=== PATIENT | female | born 1975 | race Hispanic/Latino ===

== ENCOUNTER → 2017-12-17 | Outpatient (CLI) | payer OTHER | END | disposition home or self-care (01) | LOC: RAH 09:06 | PROVIDERS: ATTEND Nurse Practitioner Family | DX: Z12.31 Encounter for screening mammogram for malignant neoplasm of breast (principal) | CPT/HCPCS: 77067 ==

== ENCOUNTER → 2018-02-28 | Outpatient (CLI) | payer OTHER | END | disposition home or self-care (01) | LOC: RAH 10:45 | PROVIDERS: ATTEND Surgery | DX: K31.84 Gastroparesis (principal); R11.10 Vomiting, unspecified; R14.0 Abdominal distension (gaseous) | CPT/HCPCS: 78264; A9541 ==

== ENCOUNTER → 2018-06-06 | Outpatient (CLI) | payer OTHER ==
[2018-06-06 09:16] LABS: BASOPHILS % (AUTO) 0.7 % (0.0-5.0); EOSINOPHILS % (AUTO) 1.2 % (0.0-8.0); HEMATOCRIT 35.1 % (36-48); LYMPHOCYTES % (AUTO) 12.2 % (21.0-51.0); MEAN CORPUSCULAR HEMOGLOBIN 25.8 pg (27.0-33.0); MEAN CORPUSCULAR HGB CONC 32.4 g/dL (32.0-36.0); MEAN CORPUSCULAR VOLUME 79.6 fL (79-99); MONOCYTES % (AUTO) 5.4 % (3.0-13.0); NEUTROPHILS % (AUTO) 80.5 % (40.0-77.0); PLATELET COUNT (AUTO) 271 K/uL (130-400); RED BLOOD CELL COUNT(AUTO) 4.41 MIL/uL (4.00-5.50); RED CELL DISTRIBUTION WIDTH 17.5 % (11.0-15.5); WHITE BLOOD COUNT (AUTO) 8.6 K/uL (4.8-10.8)
[2018-06-06 09:45] LABS: ALBUMIN 3.3 g/dL (3.5-5.0); BILIRUBIN,TOTAL 0.3 mg/dL (0.2-1.0); CREATININE 0.8 mg/dL (0.5-1.5); CRP QUANTITATIVE 47.3 mg/L (0.00-9.0); POTASSIUM 3.9 mmol/L (3.5-5.1); THYROID STIMULATING HORMONE 0.95 uIU/mL (0.36-3.74); TOTAL PROTEIN, SERUM 8.4 g/dL (6.0-8.3); URIC ACID 5.8 mg/dL (2.6-7.2)
[2018-06-06 09:48] LABS: FERRITIN 47 ng/mL (15-150); IRON, SERUM 27 mcg/dL (50-170)
[2018-06-06 10:24] LABS: ERYTHROCYTE SEDIMENTATION RATE 80 MM/HR (0-20)
[2018-06-06 12:24] LABS: APPEARANCE,URINE Clear (CLEAR); BILIRUBIN,URINE Negative (NEGATIVE); COLOR,URINE Yellow (YELLOW); GLUCOSE, URINE (UA) Negative (NEGATIVE); KETONES,URINE 15 mg/dL (NEGATIVE); LEUKOCYTE ESTERASE ,URINE Negative (NEGATIVE); NITRATE,URINE Negative (NEGATIVE); OCCULT BLOOD,URINE Trace (NEGATIVE); PH,URINE 5.5 (5.0-8.0); PROTEIN,URINE Negative (NEGATIVE); UROBILINOGEN,URINE 0.2 mg/dL (0.2-1.0)
[2018-06-06 12:42] LABS: BACTERIA,URINE Rare /HPF (None Seen); RBC,URINE 0-1 /HPF (0-1); SQUAMOUS EPITHELIAL CELL,UR Rare /HPF (0-2); WBC,URINE None Seen /HPF (0-1)
== END | disposition home or self-care (01) ==
LOC: LAB 07:54
PROVIDERS: ATTEND Internal Medicine
DX: R70.0 Elevated erythrocyte sedimentation rate (principal); E44.1 Mild protein-calorie malnutrition; E11.9 Type 2 diabetes mellitus without complications
CPT/HCPCS: 36415; 80053; 80061; 81001; 82728; 83540; 84443; 84550; 85025; 85651; 86038; 86140; 86215; 86235; 86431

== ENCOUNTER → 2018-07-02 | Outpatient (CLI) | payer OTHER ==
[2018-07-03 08:30] LABS: BASOPHILS % (AUTO) 1.2 % (0.0-5.0); EOSINOPHILS % (AUTO) 1.7 % (0.0-8.0); HEMATOCRIT 34.3 % (36-48); LYMPHOCYTES % (AUTO) 19.6 % (21.0-51.0); MEAN CORPUSCULAR HEMOGLOBIN 26.1 pg (27.0-33.0); MEAN CORPUSCULAR HGB CONC 32.9 g/dL (32.0-36.0); MEAN CORPUSCULAR VOLUME 79.3 fL (79-99); NEUTROPHILS % (AUTO) 71.5 % (40.0-77.0); PLATELET COUNT (AUTO) 290 K/uL (130-400); RED BLOOD CELL COUNT(AUTO) 4.32 MIL/uL (4.00-5.50); WHITE BLOOD COUNT (AUTO) 6.8 K/uL (4.8-10.8)
[2018-07-03 08:52] LABS: ALBUMIN 3.1 g/dL (3.5-5.0); BILIRUBIN,TOTAL 0.3 mg/dL (0.2-1.0); CREATININE 0.7 mg/dL (0.5-1.5); CRP QUANTITATIVE 41.9 mg/L (0.00-9.0); POTASSIUM 4.3 mmol/L (3.5-5.1)
[2018-07-03 09:26] LABS: ERYTHROCYTE SEDIMENTATION RATE 52 MM/HR (0-20)
== END | disposition home or self-care (01) ==
LOC: OIH 14:51
PROVIDERS: ATTEND Internal Medicine
DX: R70.0 Elevated erythrocyte sedimentation rate (principal); R77.1 Abnormality of globulin; E78.5 Hyperlipidemia, unspecified
CPT/HCPCS: 36415; 80053; 84165; 85025; 85651; 86140

== ENCOUNTER → 2018-07-29 | Outpatient (CLI) | payer OTHER | END | disposition home or self-care (01) | LOC: LAB 16:40 | PROVIDERS: ATTEND Internal Medicine | DX: R10.13 Epigastric pain (principal); R77.1 Abnormality of globulin; R70.0 Elevated erythrocyte sedimentation rate; L73.2 Hidradenitis suppurativa | CPT/HCPCS: 36415; 82784; 83013; 83516; 85651; 86140; 86160; 86215; 86235; 86255; 86376; 86431 ==

== ENCOUNTER → 2018-09-11 | Outpatient (CLI) | payer OTHER ==
[2018-09-13 08:24] LABS: HEPATITIS Bs ANTIGEN SCREEN P Negative (Negative)
== END | disposition home or self-care (01) ==
LOC: LAB 13:08
PROVIDERS: ATTEND Internal Medicine
DX: L73.2 Hidradenitis suppurativa (principal)
CPT/HCPCS: 36415; 86480; 86704; 87340

== ENCOUNTER → 2019-04-09 | Outpatient (CLI) | payer OTHER ==
[2019-04-09 08:40] LABS: BASOPHILS % (AUTO) 0.7 % (0.0-5.0); EOSINOPHILS % (AUTO) 1.6 % (0.0-8.0); HEMATOCRIT 37.1 % (36-48); LYMPHOCYTES % (AUTO) 16.1 % (21.0-51.0); MEAN CORPUSCULAR HEMOGLOBIN 26.5 pg (27.0-33.0); MEAN CORPUSCULAR HGB CONC 32.1 g/dL (32.0-36.0); MEAN CORPUSCULAR VOLUME 82.6 fL (79-99); MONOCYTES % (AUTO) 6.1 % (3.0-13.0); NEUTROPHILS % (AUTO) 75.5 % (40.0-77.0); PLATELET COUNT (AUTO) 294 K/uL (130-400); RED BLOOD CELL COUNT(AUTO) 4.49 MIL/uL (4.00-5.50); RED CELL DISTRIBUTION WIDTH 15.7 % (11.0-15.5); WHITE BLOOD COUNT (AUTO) 8.4 K/uL (4.8-10.8)
[2019-04-09 09:05] LABS: APPEARANCE,URINE Clear (CLEAR); BILIRUBIN,URINE Negative (NEGATIVE); COLOR,URINE Yellow (YELLOW); GLUCOSE, URINE (UA) Negative (NEGATIVE); KETONES,URINE Negative (NEGATIVE); LEUKOCYTE ESTERASE ,URINE Negative (NEGATIVE); NITRATE,URINE Negative (NEGATIVE); OCCULT BLOOD,URINE Negative (NEGATIVE); PH,URINE 5.5 (5.0-8.0); PROTEIN,URINE Negative (NEGATIVE); UROBILINOGEN,URINE 0.2 mg/dL (0.2-1.0)
[2019-04-09 09:12] LABS: ALBUMIN 3.1 g/dL (3.5-5.0); BILIRUBIN,TOTAL 0.1 mg/dL (0.2-1.0); CREATININE 0.8 mg/dL (0.5-1.5); POTASSIUM 4.3 mmol/L (3.5-5.1); THYROID STIMULATING HORMONE 1.29 uIU/mL (0.36-3.74); TOTAL PROTEIN, SERUM 8.3 g/dL (6.0-8.3)
[2019-04-09 09:51] LABS: ERYTHROCYTE SEDIMENTATION RATE 70 MM/HR (0-20)
== END | disposition home or self-care (01) ==
LOC: LAB 07:42
PROVIDERS: ATTEND Nurse Practitioner Family
DX: E78.00 Pure hypercholesterolemia, unspecified (principal); R53.83 Other fatigue; E04.1 Nontoxic single thyroid nodule; L73.2 Hidradenitis suppurativa
CPT/HCPCS: 36415; 80053; 80061; 81003; 84439; 84443; 85025; 85651; 86038; 86215; 86235; 86431; 87070; 87076; 87077; 87186

== ENCOUNTER → 2020-07-22 | Outpatient (CLI) | payer OTHER ==
[2020-07-22 11:09] LABS: BASOPHILS % (AUTO) 0.4 % (0.0-5.0); EOSINOPHILS % (AUTO) 1.2 % (0.0-8.0); HEMATOCRIT 36.1 % (36-48); LYMPHOCYTES % (AUTO) 17.4 % (21.0-51.0); MEAN CORPUSCULAR HEMOGLOBIN 26.1 pg (27.0-33.0); MEAN CORPUSCULAR HGB CONC 31.6 g/dL (32.0-36.0); MEAN CORPUSCULAR VOLUME 82.6 fL (79-99); MONOCYTES % (AUTO) 4.9 % (3.0-13.0); NEUTROPHILS % (AUTO) 75.6 % (40.0-77.0); PLATELET COUNT (AUTO) 350 K/uL (130-400); RED BLOOD CELL COUNT(AUTO) 4.37 MIL/uL (4.00-5.50); RED CELL DISTRIBUTION WIDTH 16.1 % (11.0-15.5)
[2020-07-22 11:22] LABS: APPEARANCE,URINE Clear (CLEAR); BILIRUBIN,URINE Negative (NEGATIVE); COLOR,URINE Yellow (YELLOW); GLUCOSE, URINE (UA) Negative (NEGATIVE); KETONES,URINE Negative (NEGATIVE); LEUKOCYTE ESTERASE ,URINE Negative (NEGATIVE); NITRATE,URINE Negative (NEGATIVE); OCCULT BLOOD,URINE Negative (NEGATIVE); PROTEIN,URINE Negative (NEGATIVE); UROBILINOGEN,URINE 0.2 mg/dL (0.2-1.0)
[2020-07-22 11:36] LABS: HEMOGLOBIN A1C 5.8 % (4.0-6.0)
[2020-07-22 11:48] LABS: ALANINE AMINOTRANSFERASE 43 U/L (12-78); ALBUMIN 3.1 g/dL (3.5-5.0); ASPARTATE AMINOTRANSFERASE 19 U/L (10-37); BILIRUBIN,TOTAL 0.2 mg/dL (0.2-1.0); CARBON DIOXIDE 28 mmol/L (21-32); CHLORIDE 104 mmol/L (101-111); CHOLESTEROL 220 mg/dL (<200); CREATININE 0.8 mg/dL (0.5-1.5); GLOMERULAR FILTR. RATE CALC 83 mL/min (>60); GLUCOSE,RANDOM 92 mg/dL (70-105); HDL CHOLESTEROL 57 mg/dL (35-85); LDL DIRECT 137 mg/dL (0-99); POTASSIUM 4.1 mmol/L (3.5-5.1); SODIUM SERUM 138 mmol/L (136-145); THYROID STIMULATING HORMONE 1.19 uIU/mL (0.36-3.74); TOTAL PROTEIN, SERUM 8.4 g/dL (6.0-8.3); TRIGLYCERIDES 99 mg/dL (30-200); UREA NITROGEN, BLOOD 17 mg/dL (7-18); URIC ACID 4.4 mg/dL (2.6-7.2)
[2020-07-22 12:11] LABS: ERYTHROCYTE SEDIMENTATION RATE 84 MM/HR (0-20)
== END | disposition home or self-care (01) ==
LOC: LAB 10:05
PROVIDERS: ATTEND Family Medicine
DX: Z00.01 Encounter for general adult medical examination with abnormal findings (principal); R53.82 Chronic fatigue, unspecified; E66.01 Morbid (severe) obesity due to excess calories; E78.5 Hyperlipidemia, unspecified; R03.0 Elevated blood-pressure reading, without diagnosis of hypertension; I10 Essential (primary) hypertension; Z68.34 Body mass index [BMI] 34.0-34.9, adult
CPT/HCPCS: 36415; 80053; 80061; 81003; 82043; 82306; 82607; 82627; 82728; 82746; 83001; 83036; 83090; 83735; 84402; 84403; 84439; 84443; 84481; 84550; 85025; 85651; 86003; 86005; 86038; 86140; 86215; 86235; 86376

== ENCOUNTER → 2021-02-08 | Outpatient (CLI) | payer OTHER ==
[2021-02-08 09:49] LABS: BASOPHILS % (AUTO) 0.6 % (0.0-5.0); EOSINOPHILS % (AUTO) 1.9 % (0.0-8.0); HEMATOCRIT 36.9 % (36-48); LYMPHOCYTES % (AUTO) 18.2 % (21.0-51.0); MEAN CORPUSCULAR HEMOGLOBIN 26.5 pg (27.0-33.0); MEAN CORPUSCULAR HGB CONC 31.7 g/dL (32.0-36.0); MEAN CORPUSCULAR VOLUME 83.7 fL (79-99); MONOCYTES % (AUTO) 6.5 % (3.0-13.0); NEUTROPHILS % (AUTO) 72.4 % (40.0-77.0); PLATELET COUNT (AUTO) 326 K/uL (130-400); RED BLOOD CELL COUNT(AUTO) 4.41 MIL/uL (4.00-5.50); RED CELL DISTRIBUTION WIDTH 16.6 % (11.0-15.5); WHITE BLOOD COUNT (AUTO) 9.6 K/uL (4.8-10.8)
[2021-02-08 09:57] LABS: HEMOGLOBIN A1C 5.9 % (4.0-6.0)
[2021-02-08 10:13] LABS: ALBUMIN 3.2 g/dL (3.5-5.0); BILIRUBIN,TOTAL 0.2 mg/dL (0.2-1.0); CREATININE 0.8 mg/dL (0.5-1.5); POTASSIUM 4.1 mmol/L (3.5-5.1); THYROID STIMULATING HORMONE 1.45 uIU/mL (0.36-3.74); TOTAL PROTEIN, SERUM 8.5 g/dL (6.0-8.3)
== END | disposition home or self-care (01) ==
LOC: RAH 10:00
PROVIDERS: ATTEND Obstetrics & Gynecology
DX: Z12.31 Encounter for screening mammogram for malignant neoplasm of breast (principal); Z11.3 Encounter for screening for infections with a predominantly sexual mode of transmission; L73.2 Hidradenitis suppurativa; Z68.42 Body mass index [BMI] 45.0-49.9, adult
CPT/HCPCS: 36415; 77067; 80053; 80061; 82306; 82627; 83036; 84270; 84402; 84403; 84443; 85025

== ENCOUNTER 2021-04-23 07:15 | Emergency (ER) | payer OTHER ==
[~2021-04-23] VITALS: Ht 172.7 cm; Wt 142.9 kg
[2021-04-23] MEDS ORDERED: 0.9%NACL 1000ML 1,000 ML IV STA (07:40)
[2021-04-23 07:49] LABS: APPEARANCE,URINE CLOUDY (CLEAR); BILIRUBIN,URINE NEGATIVE (NEGATIVE); COLOR,URINE YELLOW (YELLOW); GLUCOSE, URINE (UA) NEGATIVE (NEGATIVE); KETONES,URINE NEGATIVE (NEGATIVE); LEUKOCYTE ESTERASE ,URINE TRACE (NEGATIVE); NITRATE,URINE POSITIVE (NEGATIVE); OCCULT BLOOD,URINE LARGE (NEGATIVE); PROTEIN,URINE >=300 mg/dL (NEGATIVE); UROBILINOGEN,URINE 0.2 mg/dL (0.2-1.0)
[2021-04-23 07:52] LABS: HCG,QUAL RESULT NEGATIVE (NEGATIVE)
[2021-04-23 08:04] LABS: RBC,URINE 51-100 /HPF (0-1); WBC,URINE Full Field /HPF (0-1)
[2021-04-23 08:05] LABS: BACTERIA,URINE Few /HPF (None Seen); YEAST,URINE BUDDING Few /HPF (None Seen)
[2021-04-23 10:22] LABS: BASOPHILS % (AUTO) 0.3 % (0.0-5.0); EOSINOPHILS % (AUTO) 0.2 % (0.0-8.0); HEMATOCRIT 37.4 % (36-48); LYMPHOCYTES % (AUTO) 4.4 % (21.0-51.0); MEAN CORPUSCULAR HEMOGLOBIN 26.2 pg (27.0-33.0); MEAN CORPUSCULAR HGB CONC 31.6 g/dL (32.0-36.0); MEAN CORPUSCULAR VOLUME 82.9 fL (79-99); MONOCYTES % (AUTO) 4.6 % (3.0-13.0); NEUTROPHILS % (AUTO) 90.2 % (40.0-77.0); PLATELET COUNT (AUTO) 281 K/uL (130-400); RED BLOOD CELL COUNT(AUTO) 4.51 MIL/uL (4.00-5.50); RED CELL DISTRIBUTION WIDTH 16.6 % (11.0-15.5); WHITE BLOOD COUNT (AUTO) 18.3 K/uL (4.8-10.8)
[2021-04-23 10:30] VITALS: BP 128/74
[2021-04-23 10:32] LABS: CREATININE 0.8 mg/dL (0.5-1.5); POTASSIUM 4.5 mmol/L (3.5-5.1)
[2021-04-23 10:36] LABS: BILIRUBIN,TOTAL 0.3 mg/dL (0.2-1.0); TOTAL PROTEIN, SERUM 8.1 g/dL (6.0-8.3)
[2021-04-23] MEDS ORDERED: LIDOCAINE HCL-MPF 1% 2ML VIAL ONE (10:49)
[2021-04-23] MEDS ORDERED: MACR100 PO (10:54)
[2021-04-23] MEDS ORDERED: CEFTRIAXONE 1G VIAL IM ONE (11:00)
[2021-04-23 11:19] VITALS: BP 124/72
== END 2021-04-23 11:28 | disposition home or self-care (01) ==
LOC: EDH 07:15
DX: N12 Tubulo-interstitial nephritis, not specified as acute or chronic (principal); Z20.822 Contact with and (suspected) exposure to COVID-19
CPT/HCPCS: 36415; 74176; 80053; 81001; 81025; 85025; 87077; 87088; 87186; 87635; 87804; 96372; C9803; J0696; J3490

== ENCOUNTER 2021-11-16 11:23 | Day surgery (SDC) | payer OTHER ==
[2021-11-16] VITALS (8 sets, daily range): BP systolic 122–136; BP diastolic 68–92
[~2021-11-16] VITALS: Ht 172.7 cm; Wt 142.9 kg
[~2021-11-16 11:23] MED LIST: 0.9%NACL 1000ML 1,000 ML IV ONE; MACR100 PO; MELO10CA3 PO
[2021-11-16] MEDS ORDERED: 0.9%NACL 1000ML 1,000 ML IV ONE (12:01)
[2021-11-16] MEDS ORDERED: MV-M1TAB20 PO (12:43)
[2021-11-16] MEDS ORDERED: MULT-952 PO (12:43)
[2021-11-16] MEDS ORDERED: MIDAZOLAM HCL 1 MG/ML 2ML VIAL ONE (13:22)
[2021-11-16] MEDS ORDERED: LIDOCAINE PF 100MG/5ML (2%) SYRINGE 5ML ONE (13:22)
[2021-11-16] MEDS ORDERED: PROPOFOL 10 MG/ML 20ML VIAL IV ONE (13:22)
== END 2021-11-16 14:05 | disposition home or self-care (01) ==
LOC: DAH 11:23 → ENDO 11:23
PROVIDERS: ATTEND Internal Medicine Gastroenterology
DX: R14.0 Abdominal distension (gaseous) (principal); R68.81 Early satiety; Z20.822 Contact with and (suspected) exposure to COVID-19; K21.00 Gastro-esophageal reflux disease with esophagitis, without bleeding; K29.00 Acute gastritis without bleeding; K44.9 Diaphragmatic hernia without obstruction or gangrene; E78.5 Hyperlipidemia, unspecified; E66.9 Obesity, unspecified; Z90.49 Acquired absence of other specified parts of digestive tract; Z98.890 Other specified postprocedural states; Z87.891 Personal history of nicotine dependence; Z86.16 Personal history of COVID-19; Z98.891 History of uterine scar from previous surgery; Z83.3 Family history of diabetes mellitus; Z82.49 Family history of ischemic heart disease and other diseases of the circulatory system; Z80.59 Family history of malignant neoplasm of other urinary tract organ; Z80.0 Family history of malignant neoplasm of digestive organs; Z68.42 Body mass index [BMI] 45.0-49.9, adult
CPT/HCPCS: 43239; 87635; A4215 ×2; A4221; A4222; A4223; A4606; A4620; A4657; A4663; C9803; J2001; J2250; J2704; J7030 ×2

== ENCOUNTER → 2024-02-12 | Outpatient (CLI) | payer OTHER ==
[~2024-02-12] MED LIST changes: -0.9%NACL 1000ML 1,000 ML IV ONE; +MULT-952 PO; +MV-M1TAB20 PO
== END | disposition home or self-care (01) ==
LOC: RAH 10:31
PROVIDERS: ATTEND Internal Medicine
DX: Z12.31 Encounter for screening mammogram for malignant neoplasm of breast (principal); R92.323 Mammographic fibroglandular density, bilateral breasts
CPT/HCPCS: 77067